=== PATIENT | male | born 1995 ===

== ENCOUNTER 2020-11-05 09:41 | Emergency (ER) | payer OTHER ==
[~2020-11-05] VITALS: Ht 175.3 cm; Wt 88.2 kg
[2020-11-05 09:43] VITALS: BP 124/79
[2020-11-05] MEDS ORDERED: VALA100031 PO (10:04)
[2020-11-05] MEDS ORDERED: CARB1DRO OP (10:04)
[2020-11-05] MEDS ORDERED: PRED20TA PO (10:04)
== END 2020-11-05 10:19 ==
LOC: EEVIPCON 09:42 → ER 09:42
DX: G51.0 Bell's palsy (principal); R51.9 Headache, unspecified; Z88.5 Allergy status to narcotic agent; Z79.2 Long term (current) use of antibiotics; Z79.899 Other long term (current) drug therapy
CPT/HCPCS: 99283